=== PATIENT | female | born 1995 | race Caucasian/White ===

== ENCOUNTER 2017-01-13 12:22 | Emergency (ER) | payer OTHER ==
[~2017-01-13] VITALS: Ht 175.2 cm; Wt 61.2 kg
[~2017-01-13 12:22] MED LIST: ADDERALL 20 MG20 MG PO; ADDERALL20 MG PO; AMOXICILLIN500 M1 PO; BACTRIM DS 8001 TA1 PO; CIPRO500 MG PO; DEPO-PROVER150 MG/M1 IM; FLOMAX0.4 MG PO; HYDROCODONE BIT1 T11 PO; KETOROLAC10 MG PO; MEDROL DOSEPAK4 MG PO; Motrin,Rufen800 MG PO; NAPROSYN500 MG PO; PHENERGAN25 MG R; ZOFRAN ODT4 MG SL; ZOFRAN4 MG PO
[2017-01-13 12:26] VITALS: BP 143/83
[2017-01-13] MEDS ORDERED: VIBRAMYCIN100 MG PO (12:26)
[2017-01-13] MEDS ORDERED: NAPROSYN500 MG PO (12:36)
[2017-01-13] MEDS ORDERED: Peridex 473 ML473 ML PO (12:36)
[2017-01-13] MEDS ORDERED: LIDOCAINE HCL100 M1 MM (12:36)
[2017-01-13] MEDS ORDERED: PENICILLIN VK500 MG PO (12:36)
== END 2017-01-13 13:58 | disposition home or self-care (01) ==
LOC: ED 12:22
DX: K02.9 Dental caries, unspecified (principal); R03.0 Elevated blood-pressure reading, without diagnosis of hypertension; F17.200 Nicotine dependence, unspecified, uncomplicated

== ENCOUNTER 2017-05-01 02:20 | Emergency (ER) | payer OTHER ==
[~2017-05-01] VITALS: Ht 175.2 cm; Wt 59.0 kg
[~2017-05-01 02:20] MED LIST changes: +LIDOCAINE HCL100 M1 MM; +PENICILLIN VK500 MG PO; +Peridex 473 ML473 ML PO; +VIBRAMYCIN100 MG PO
[2017-05-01 02:30] VITALS: BP 136/78
[2017-05-01] MEDS ORDERED: BACTRIM 400-801 EACH PO ×2 (02:54→03:03)
[2017-05-01] MEDS ORDERED: VIBRAMYCIN100 MG PO ×2 (02:54→03:03)
[2017-05-01] MEDS ORDERED: KENALOG 0.1%80 GM T (02:55)
== END 2017-05-01 03:38 | disposition home or self-care (01) ==
LOC: ED 02:20
DX: S70.362A Insect bite (nonvenomous), left thigh, initial encounter (principal); W57.XXXA Bitten or stung by nonvenomous insect and other nonvenomous arthropods, initial encounter; Y93.9 Activity, unspecified; Y92.9 Unspecified place or not applicable; Y99.9 Unspecified external cause status

== ENCOUNTER 2017-05-05 12:01 | Inpatient (IN) | payer OTHER ==
[~2017-05-05] VITALS: Ht 175.2 cm; Wt 57.4 kg
[~2017-05-05 12:01] MED LIST changes: +BACTRIM 400-801 EACH PO; +KENALOG 0.1%80 GM T
[2017-05-05 12:11] VITALS: BP 108/84
[2017-05-05 12:34] LABS: HEMATOCRIT 42.3 % (37.0-47.0); HEMOGLOBIN 14.3 g/dl (12.0-16.0); MEAN CELL VOLUME 88.3 fl (81.0-99.0); MEAN CORPUSCULAR HGB 29.9 pg (27.0-31.0); MEAN CORPUSCULAR HGB CONC 33.8 g/dl (33.0-37.0); MEAN PLATELET VOLUME 10.6 fl (9.6-12.3); PLATELET COUNT AUTOMATED 371 10*3/uL (130-400); RED BLOOD COUNT 4.79 10*6/uL (4.10-5.10); RED CELL DISTRI WIDTH 12.1 % (0-14.5); WHITE BLOOD COUNT 17.9 10*3/uL (4.8-10.8)
[2017-05-05 12:41] LABS: BILIRUBIN NEGATIVE (NEGATIVE); BLOOD TRACE-INTACT (NEGATIVE); CLARITY CLOUDY (CLEAR); COLOR YELLOW (YELLOW); GLUCOSE NEGATIVE (NEGATIVE); KETONE TRACE (NEGATIVE); LEUKO ESTERASE 1+ (NEGATIVE); NITRITE NEGATIVE (NEGATIVE); PROTEIN 2+ (NEGATIVE); SPECIFIC GRAVITY 1.025 (1.005-1.030)
[2017-05-05 12:48] LABS: ALKALINE PHOSPHATASE 71 U/L (45-117); BILIRUBIN, TOTAL 0.4 mg/dl (0.2-1.0); BUN 6 mg/dl (7-24); CARBON DIOXIDE 28 mmol/L (21-32); CHLORIDE 101 mmol/L (98-107); EST GLOM FILT AFRICAN AMERICAN > 60 ml/min; GLUCOSE 97 mg/dL (65-99); POTASSIUM 3.5 mmol/L (3.5-5.1); SGOT/AST 8 IU/L (3-35); SGPT/ALT 12 U/L (12-78); SODIUM 139 mmol/L (136-145); TOTAL PROTEIN 8.2 gm/dL (6.4-8.2)
[2017-05-05 12:56] LABS: BASOPHIL # 0.2 10*3/uL (0-0.1); BASOPHILS 1 % (0-1); LYMPHOCYTE # 0.9 10*3/uL (1.3-4.4); MONOCYTE # 1.1 10*3/uL (0.1-1.0); NEUTROPHIL # 15.8 10*3/uL (2.3-7.9); NEUTROPHILS 88 % (47-73); PLATELET SUFFICIENCY NORMAL (NORMAL); TOTAL CELLS COUNTED 100 #CELLS
[2017-05-05 12:58] LABS: BACTERIA 3+; EPITHELIAL CELLS 30-40; MUCOUS 2+; URINE REFLEX COMMENT YES (NO); WBC 41-50 wbc/hpf (0-5)
[2017-05-05 13:03] LABS: URINE AMPHETAMINES < 1000 (1000ng/ml); URINE BARBITURATES < 200 (200ng/ml); URINE COCAINE > 300 (300ng/ml)
[2017-05-05] MEDS ORDERED: ADDERALL 20 MG20 MG PO (14:16)
[2017-05-05 14:20] VITALS: BP 112/80
[2017-05-05 14:30] VITALS: BP 112/80
[2017-05-05] MEDS ORDERED: KENALOG 0.1%80 GM T (14:59)
[2017-05-05 16:00] VITALS: BP 120/67
[2017-05-05 20:00] VITALS: BP 115/77
[2017-05-06] VITALS: BP 120/68
[2017-05-06 06:17] LABS: BASO % 0.1 % (0.0-1.0); EOS # 0.1 10*3/uL (0.0-0.4); EOS % 0.9 % (1.0-4.0); HEMATOCRIT 39.7 % (37.0-47.0); IG # 0.1 10*3/uL (0.0-0.1); LYMPH % 6.9 % (27.0-41.0); MEAN CELL VOLUME 89.6 fl (81.0-99.0); MEAN CORPUSCULAR HGB 29.3 pg (27.0-31.0); MEAN CORPUSCULAR HGB CONC 32.7 g/dl (33.0-37.0); MEAN PLATELET VOLUME 10.7 fl (9.6-12.3); MONO # 1.5 10*3/uL (0.1-1.0); MONO % 10.4 % (3.0-9.0); NEUT # 11.3 10*3/uL (2.3-7.9); NEUT % 81.2 % (47.0-73.0); PLATELET COUNT AUTOMATED 329 10*3/uL (130-400); RED BLOOD COUNT 4.43 10*6/uL (4.10-5.10); RED CELL DISTRI WIDTH 12.2 % (0-14.5); WHITE BLOOD COUNT 13.9 10*3/uL (4.8-10.8)
[2017-05-06 06:54] LABS: ALBUMIN 2.8 gm/dl (3.1-4.5); BUN 5 mg/dl (7-24); CARBON DIOXIDE 29 mmol/L (21-32); CHLORIDE 106 mmol/L (98-107); CHOLESTEROL 84 mg/dL (<200); EST GLOM FILT AFRICAN AMERICAN > 60 ml/min; GLUCOSE 113 mg/dL (65-99); MAGNESIUM 1.9 mg/dL (1.5-2.1); PHOSPHOROUS 2.4 mg/dL (2.5-4.9); POTASSIUM 3.3 mmol/L (3.5-5.1); SGOT/AST 9 IU/L (3-35); SGPT/ALT 9 U/L (12-78); SODIUM 139 mmol/L (136-145); TRIGLYCERIDES 65 mg/dl (<150); VLDL CHOLESTEROL 13 mg/dL (6-40)
[2017-05-06 06:57] LABS: PROTHROMBIN TIME 10.8 SECONDS (9.0-12.4)
[2017-05-06 07:01] LABS: ALKALINE PHOSPHATASE 61 U/L (45-117); BILIRUBIN, TOTAL 0.4 mg/dl (0.2-1.0); HDL CHOLESTEROL 30 mg/dl (40-60); LDL CHOLESTEROL 41 mg/dL (9-159); TOTAL PROTEIN 7.5 gm/dL (6.4-8.2)
[2017-05-06 08:00] VITALS: BP 106/62
[2017-05-06 08:29] LABS: VITAMIN D, 25-HYDROXY 32.7 ng/mL (30-100)
[2017-05-06 08:30] LABS: FOLIC ACID 9.59 ng/mL (>5.38)
[2017-05-06 12:00] VITALS: BP 118/73
[2017-05-06] MEDS ORDERED: ZOFRAN ODT4 MG SL (14:21)
[2017-05-06] MEDS ORDERED: FLAGYL500 MG PO (14:21)
== END 2017-05-06 15:14 | disposition home or self-care (01) | DRG 872 ==
LOC: ED 12:01 → EDHOLD 13:38 → 4E 13:48
PROVIDERS: Emergency Medicine; Internal Medicine Nephrology
DX: A41.9 Sepsis, unspecified organism (principal); E44.1 Mild protein-calorie malnutrition; Z68.1 Body mass index [BMI] 19.9 or less, adult; D72.0 Genetic anomalies of leukocytes; K52.9 Noninfective gastroenteritis and colitis, unspecified; F19.10 Other psychoactive substance abuse, uncomplicated; R10.2 Pelvic and perineal pain; F14.10 Cocaine abuse, uncomplicated; F12.10 Cannabis abuse, uncomplicated; R82.71 Bacteriuria; F17.200 Nicotine dependence, unspecified, uncomplicated; Z71.6 Tobacco abuse counseling; Z82.49 Family history of ischemic heart disease and other diseases of the circulatory system; Z79.1 Long term (current) use of non-steroidal anti-inflammatories (NSAID); Z91.09 Other allergy status, other than to drugs and biological substances; Z87.442 Personal history of urinary calculi; Z79.899 Other long term (current) drug therapy

== ENCOUNTER 2017-05-13 22:05 | Emergency (ER) | payer OTHER ==
[~2017-05-13] VITALS: Ht 175.2 cm; Wt 59.9 kg
[~2017-05-13 22:05] MED LIST changes: +FLAGYL500 MG PO
[2017-05-13 22:37] LABS: BASO % 0.3 % (0.0-1.0); EOS # 0.3 10*3/uL (0.0-0.4); HEMATOCRIT 38.8 % (37.0-47.0); LYMPH # 1.5 10*3/uL (1.3-4.4); LYMPH % 11.8 % (27.0-41.0); MEAN CELL VOLUME 90.7 fl (81.0-99.0); MEAN CORPUSCULAR HGB 30.4 pg (27.0-31.0); MEAN CORPUSCULAR HGB CONC 33.5 g/dl (33.0-37.0); MEAN PLATELET VOLUME 10.6 fl (9.6-12.3); MONO # 1.3 10*3/uL (0.1-1.0); MONO % 10.4 % (3.0-9.0); NEUT # 9.5 10*3/uL (2.3-7.9); PLATELET COUNT AUTOMATED 457 10*3/uL (130-400); RED BLOOD COUNT 4.28 10*6/uL (4.10-5.10); RED CELL DISTRI WIDTH 12.5 % (0-14.5); WHITE BLOOD COUNT 12.7 10*3/uL (4.8-10.8)
[2017-05-13 23:02] VITALS: BP 124/72
[2017-05-13 23:02] LABS: ALBUMIN 3.2 gm/dl (3.1-4.5); ALKALINE PHOSPHATASE 56 U/L (45-117); BUN 7 mg/dl (7-24); CHLORIDE 105 mmol/L (98-107); CREATININE 0.85 mg/dL (0.55-1.02); POTASSIUM 4.5 mmol/L (3.5-5.1); SGOT/AST 18 IU/L (3-35); SGPT/ALT 11 U/L (12-78); SODIUM 138 mmol/L (136-145); TOTAL PROTEIN 7.8 gm/dL (6.4-8.2)
[2017-05-13 23:43] LABS: BILIRUBIN NEGATIVE (NEGATIVE); BLOOD NEGATIVE (NEGATIVE); CLARITY CLOUDY (CLEAR); COLOR YELLOW (YELLOW); GLUCOSE NEGATIVE (NEGATIVE); KETONE TRACE (NEGATIVE); LEUKO ESTERASE 1+ (NEGATIVE); NITRITE NEGATIVE (NEGATIVE); SPECIFIC GRAVITY >= 1.030 (1.005-1.030); UROBILINOGEN 0.2 E.U./dl (0.2-1.0)
[2017-05-13] MEDS ORDERED: MIRALAX POWDER17 G1 PO (23:46)
[2017-05-13 23:51] LABS: BACTERIA 4+; EPITHELIAL CELLS 35-40; WBC 16-20 wbc/hpf (0-5)
[2017-05-13] MEDS ORDERED: MACROBID100 M1 PO (23:53)
== END 2017-05-14 00:28 | disposition home or self-care (01) ==
LOC: ED 22:05
PROVIDERS: Nurse Practitioner Family
DX: N39.0 Urinary tract infection, site not specified (principal); K59.00 Constipation, unspecified; F12.10 Cannabis abuse, uncomplicated; F14.10 Cocaine abuse, uncomplicated; F17.200 Nicotine dependence, unspecified, uncomplicated; Z79.899 Other long term (current) drug therapy

== ENCOUNTER 2017-08-25 16:55 | Emergency (ER) | payer OTHER ==
[~2017-08-25] VITALS: Wt 64.4 kg
[~2017-08-25 16:55] MED LIST changes: +MACROBID100 M1 PO; +MIRALAX POWDER17 G1 PO
[2017-08-25 16:57] VITALS: BP 154/94
[2017-08-25] MEDS ORDERED: NAPROSYN500 MG PO (17:05)
[2017-08-25] MEDS ORDERED: Peridex 473 ML473 ML PO (17:05)
[2017-08-25] MEDS ORDERED: PENICILLIN VK500 MG PO (17:05)
== END 2017-08-25 17:05 | disposition home or self-care (01) ==
LOC: ED 16:55
DX: K02.9 Dental caries, unspecified (principal); R03.0 Elevated blood-pressure reading, without diagnosis of hypertension; F17.200 Nicotine dependence, unspecified, uncomplicated; Z79.899 Other long term (current) drug therapy

== ENCOUNTER 2018-08-23 11:45 | Emergency (ER) | payer OTHER ==
[~2018-08-23] VITALS: Ht 177.8 cm; Wt 72.6 kg
[2018-08-23 11:50] VITALS: BP 150/101
== END 2018-08-23 12:01 | disposition left against medical advice (07) ==
LOC: ED 11:45
DX: O99.713 Diseases of the skin and subcutaneous tissue complicating pregnancy, third trimester (principal); L08.9 Local infection of the skin and subcutaneous tissue, unspecified; O99.333 Smoking (tobacco) complicating pregnancy, third trimester; Z3A.32 32 weeks gestation of pregnancy; Z79.2 Long term (current) use of antibiotics; Z79.899 Other long term (current) drug therapy; Z87.442 Personal history of urinary calculi; Z91.048 Other nonmedicinal substance allergy status

== ENCOUNTER 2019-09-13 17:27 | Emergency (ER) | payer OTHER ==
[~2019-09-13] VITALS: Ht 177.8 cm; Wt 59.4 kg
[2019-09-13 17:28] VITALS: BP 136/91
[2019-09-13] MEDS ORDERED: CLINDAMYCIN HC300 MG PO (17:48)
[2019-09-13] MEDS ORDERED: NAPROSYN500 MG PO (17:48)
== END 2019-09-13 18:15 | disposition home or self-care (01) ==
LOC: ED 17:27
DX: K04.7 Periapical abscess without sinus (principal); F17.200 Nicotine dependence, unspecified, uncomplicated; Z91.048 Other nonmedicinal substance allergy status

== ENCOUNTER 2019-10-05 23:21 | Inpatient (IN) | payer SELFPAY ==
[~2019-10-05] VITALS: Ht 177.8 cm; Wt 59.4 kg
[~2019-10-05 23:21] MED LIST changes: +CLINDAMYCIN HC300 MG PO
[2019-10-05 23:26] VITALS: BP 136/88
[2019-10-06 00:06] LABS: BILIRUBIN NEGATIVE (NEGATIVE); BLOOD 2+ (NEGATIVE); CLARITY CLOUDY (CLEAR); COLOR YELLOW (YELLOW); GLUCOSE NEGATIVE (NEGATIVE); KETONE NEGATIVE (NEGATIVE); LEUKO ESTERASE 1+ (NEGATIVE); NITRITE POSITIVE (NEGATIVE); SPECIFIC GRAVITY >= 1.030 (1.005-1.030)
[2019-10-06 00:15] LABS: BACTERIA 4+; RBC 16-20 rbc/hpf (0-2); WBC TNTC wbc/hpf (0-5)
[2019-10-06 01:09] LABS: ALBUMIN 3.4 gm/dl (3.1-4.5); ALKALINE PHOSPHATASE 74 U/L (45-117); BUN 12 mg/dl (7-24); CHLORIDE 106 mmol/L (98-107); CREATININE 0.84 mg/dL (0.55-1.02); POTASSIUM 3.1 mmol/L (3.5-5.1); SGOT/AST 10 IU/L (3-35); SGPT/ALT 15 U/L (12-78); SODIUM 136 mmol/L (136-145); TOTAL PROTEIN 7.2 gm/dL (6.4-8.2)
[2019-10-06 01:11] LABS: HEMATOCRIT 38.2 % (37.0-47.0); HEMOGLOBIN 12.4 g/dl (12.0-16.0); MEAN CELL VOLUME 87.4 fl (81.0-99.0); MEAN CORPUSCULAR HGB 28.4 pg (27.0-31.0); MEAN CORPUSCULAR HGB CONC 32.5 g/dl (33.0-37.0); MEAN PLATELET VOLUME 11.9 fl (9.6-12.3); PLATELET COUNT AUTOMATED 232 10*3/uL (130-400); RED BLOOD COUNT 4.37 10*6/uL (4.10-5.10); RED CELL DISTRI WIDTH 12.5 % (0-14.5); WHITE BLOOD COUNT 25.1 10*3/uL (4.8-10.8)
[2019-10-06 01:34] LABS: BASOPHILS 1 % (0-1); BURR CELLS FEW; PLATELET SUFFICIENCY NORMAL (NORMAL); TOTAL CELLS COUNTED 100 #CELLS
[2019-10-06 03:01] VITALS: BP 108/76
[2019-10-06 03:28] LABS: URINE AMPHETAMINES < 1000 (1000ng/ml); URINE BARBITURATES < 200 (200ng/ml); URINE BENZODIAZEPINES < 200 (200ng/ml); URINE CANNABINOIDS (THC) > 50 (50ng/ml); URINE COCAINE > 300 (300ng/ml); URINE METHADONE < 300 (300ng/ml); URINE OPIATES < 300 (300ng/ml)
[2019-10-06 03:45] VITALS: BP 119/64
[2019-10-06 03:48] LABS: URINE PHENCYCLIDINE < 25 (25ng/ml)
[2019-10-06 08:00] VITALS: BP 116/70
[2019-10-06 12:00] VITALS: BP 112/70
[2019-10-06 16:00] VITALS: BP 113/66
[2019-10-06 20:00] VITALS: BP 118/67
[2019-10-07] VITALS: BP 110/67
[2019-10-07 06:42] LABS: BASO % 0.2 % (0.0-1.0); EOS # 0.1 10*3/uL (0.0-0.4); EOS % 0.6 % (1.0-4.0); HEMATOCRIT 34.5 % (37.0-47.0); LYMPH # 0.6 10*3/uL (1.3-4.4); LYMPH % 6.8 % (27.0-41.0); MEAN CELL VOLUME 88.5 fl (81.0-99.0); MEAN CORPUSCULAR HGB 28.2 pg (27.0-31.0); MEAN CORPUSCULAR HGB CONC 31.9 g/dl (33.0-37.0); MEAN PLATELET VOLUME 12.4 fl (9.6-12.3); MONO # 0.9 10*3/uL (0.1-1.0); NEUT # 7.6 10*3/uL (2.3-7.9); NEUT % 81.9 % (47.0-73.0); PLATELET COUNT AUTOMATED 191 10*3/uL (130-400); RED CELL DISTRI WIDTH 12.8 % (0-14.5); WHITE BLOOD COUNT 9.3 10*3/uL (4.8-10.8)
[2019-10-07 07:18] LABS: BUN 5 mg/dl (7-24); CHLORIDE 111 mmol/L (98-107); CHOLESTEROL 78 mg/dL (<200); CREATININE 0.78 mg/dL (0.55-1.02); POTASSIUM 3.8 mmol/L (3.5-5.1); SODIUM 139 mmol/L (136-145); TRIGLYCERIDES 77 mg/dl (<150); VLDL CHOLESTEROL 15 mg/dL (6-40)
[2019-10-07 07:28] LABS: HDL CHOLESTEROL 26 mg/dl (40-60); LDL CHOLESTEROL 37 mg/dL (9-159); THYROID STIM HORMONE (HS) 0.934 uIU/ml (0.358-4.75)
[2019-10-07 07:56] LABS: VITAMIN D, 25-HYDROXY 36.4 ng/mL (30-100)
[2019-10-07 08:00] VITALS: BP 110/70; BP 128/71
[2019-10-07 12:00] VITALS: BP 131/69
[2019-10-07 16:00] VITALS: BP 122/77
[2019-10-07 20:00] VITALS: BP 134/90
[2019-10-07 22:03] LABS: GONOCOCCUS BY NAA Negative (Negative)
== END 2019-10-07 22:43 | disposition left against medical advice (07) | DRG 872 ==
LOC: ED 23:21 → EDHOLD 10-06 02:54 → 5E 10-06 02:54
PROVIDERS: Emergency Medicine; Internal Medicine; Nurse Practitioner Family; ADMIT Internal Medicine
DX: A41.50 Gram-negative sepsis, unspecified (principal); N30.01 Acute cystitis with hematuria; N13.6 Pyonephrosis; E87.6 Hypokalemia; K59.00 Constipation, unspecified; F17.210 Nicotine dependence, cigarettes, uncomplicated; Z53.29 Procedure and treatment not carried out because of patient's decision for other reasons; F14.10 Cocaine abuse, uncomplicated; Z91.09 Other allergy status, other than to drugs and biological substances; Z82.49 Family history of ischemic heart disease and other diseases of the circulatory system; Z79.899 Other long term (current) drug therapy

== ENCOUNTER 2019-10-08 13:39 | Inpatient (IN) | payer OTHER ==
[~2019-10-08] VITALS: Ht 177.8 cm; Wt 62.6 kg
[2019-10-08 13:47] VITALS: BP 130/82
[2019-10-08 14:40] LABS: BASO % 0.2 % (0.0-1.0); EOS # 0.1 10*3/uL (0.0-0.4); EOS % 1.1 % (1.0-4.0); HEMATOCRIT 37.5 % (37.0-47.0); LYMPH # 0.9 10*3/uL (1.3-4.4); MEAN CORPUSCULAR HGB 28.2 pg (27.0-31.0); MEAN PLATELET VOLUME 11.2 fl (9.6-12.3); MONO # 0.8 10*3/uL (0.1-1.0); MONO % 15.7 % (3.0-9.0); NEUT # 3.5 10*3/uL (2.3-7.9); NEUT % 65.4 % (47.0-73.0); PLATELET COUNT AUTOMATED 234 10*3/uL (130-400); RED BLOOD COUNT 4.26 10*6/uL (4.10-5.10); WHITE BLOOD COUNT 5.3 10*3/uL (4.8-10.8)
[2019-10-08 14:49] LABS: ACT PARTIAL THROMBO TIME 30.7 SECONDS (20.0-32.1)
[2019-10-08 14:58] LABS: ALBUMIN 2.8 gm/dl (3.1-4.5); ALKALINE PHOSPHATASE 109 U/L (45-117); BUN 2 mg/dl (7-24); CHLORIDE 107 mmol/L (98-107); CREATININE 0.83 mg/dL (0.55-1.02); LIPASE 37 U/L (73-393); POTASSIUM 3.8 mmol/L (3.5-5.1); SGOT/AST 33 IU/L (3-35); SGPT/ALT 58 U/L (12-78); SODIUM 138 mmol/L (136-145); TOTAL PROTEIN 7.1 gm/dL (6.4-8.2)
[2019-10-08 15:04] LABS: TROPONIN I < 0.015 ng/ml (<0.045)
[2019-10-08 16:34] LABS: CLARITY CLEAR (CLEAR); COLOR YELLOW (YELLOW); GLUCOSE NEGATIVE (NEGATIVE)
[2019-10-08 16:35] LABS: BILIRUBIN NEGATIVE (NEGATIVE); BLOOD NEGATIVE (NEGATIVE); KETONE NEGATIVE (NEGATIVE); PH 7.5 (5.0-9.0); SPECIFIC GRAVITY 1.005 (1.005-1.030)
[2019-10-08 16:36] LABS: LEUKO ESTERASE NEGATIVE (NEGATIVE); NITRITE NEGATIVE (NEGATIVE); UROBILINOGEN 0.2 E.U./dl (0.2-1.0); WBC 0-2 wbc/hpf (0-5)
[2019-10-08 17:47] VITALS: BP 117/71
--- NOTE | 2019-10-08 18:06 | NUR ---
UNABLE TO REACH STAFF NURSE CALLED 5E LEFT MESSAGE TO RETURN CALL
--- NOTE | 2019-10-08 18:35 | NUR ---
A 24, admitted to 5E, under the services of MARISOL Loja DO with a diagnosis of SEPSIS, BACTEREMIA D/T ECOLI. Chief complaint is CALLED FROM ER WITH +BC AFTER LEAVING AMA THE NIGHT BEFORE BECAUSE SHE "FELT BETTER". Patient arrived via stretcher from ER. Monitor applied. Initial assessment completed. Vital signs taken and recorded. MARISOL LOJA DO notified of admission to the unit. Orders received. See assessment for past medical history, medications and allergies. Patient and/or family oriented to unit. [address] visitation policy reviewed. Clothing/patient valuable form completed. JANES PUENTES
--- NOTE | 2019-10-08 18:35 | NUR ---
Time: 1834 A 24 year old FEMAL admitted to under services of MARISOL LOJA DO. Pt. arrived via stretcher from ER. Chief complaint: CALLED FROM HOSPITAL TODAY RE: BLOOD CULTURES FROM HER ADMISSION YESTERDAY POSITIVE FOR E COLI. SHANNA MONTGOMERY
[2019-10-08 18:37] VITALS: BP 139/85
--- NOTE | 2019-10-08 19:58 | NUR ---
Message left with Dr. Soria's answering service regarding consult. Awaiting return call.
[2019-10-08 20:00] VITALS: BP 111/59
--- NOTE | 2019-10-08 20:02 | NUR ---
Dr. Soria notified of consult.
[2019-10-09] VITALS: BP 118/84
--- NOTE | 2019-10-09 01:11 | NUR ---
PATIENT COMPLAINS OF 9/10 HEADACHE AND NAUSEA. MEDICATED WITH TYLENOL AND ZOFRAN ORDERED AND PER PATIENT REQUEST. WILL MONITOR FOR EFFECTIVENESS.
--- NOTE | 2019-10-09 02:11 | NUR ---
PATIENT ASLEEP. NO SIGNS OF PAIN OR NAUSEA. TYLENOL AND ZOFRAN EFFECTIVE.
[2019-10-09 06:25] LABS: BASO % 0.4 % (0.0-1.0); EOS # 0.1 10*3/uL (0.0-0.4); HEMATOCRIT 35.2 % (37.0-47.0); HEMOGLOBIN 11.3 g/dl (12.0-16.0); LYMPH % 14.2 % (27.0-41.0); MEAN CELL VOLUME 87.1 fl (81.0-99.0); MEAN CORPUSCULAR HGB CONC 32.1 g/dl (33.0-37.0); MEAN PLATELET VOLUME 11.5 fl (9.6-12.3); MONO # 1.2 10*3/uL (0.1-1.0); NEUT # 4.7 10*3/uL (2.3-7.9); PLATELET COUNT AUTOMATED 260 10*3/uL (130-400); RED BLOOD COUNT 4.04 10*6/uL (4.10-5.10)
[2019-10-09 06:37] LABS: BUN 3 mg/dl (7-24); CHLORIDE 110 mmol/L (98-107); CREATININE 0.71 mg/dL (0.55-1.02); PHOSPHOROUS 1.9 mg/dL (2.5-4.9); POTASSIUM 3.9 mmol/L (3.5-5.1); SODIUM 140 mmol/L (136-145)
[2019-10-09 08:00] VITALS: BP 133/54
--- NOTE | 2019-10-09 09:18 | NUR ---
NORCO GIVEN FOR C/O BODY ACHES/HEADACHE. RATES 8/10 ON PAIN SCALE. WILL MONITOR.
--- NOTE | 2019-10-09 10:20 | NUR ---
NORCO RELIEVED BODY ACHES. PT STILL C/O HEADACHE. WILL CONTINUE TO MONITOR.
[2019-10-09] MEDS ORDERED: LEVAQUIN750 M1 PO (10:33)
--- NOTE | 2019-10-09 10:47 | NUR ---
TYLENOL GIVEN FOR C/O HEADACHE. WILL MONITOR.
[2019-10-09] MEDS ORDERED: ZOFRAN4 MG PO (11:28)
--- NOTE | 2019-10-09 11:58 | NUR ---
[facility] Discharge instructions reviewed with patient/family. Patient receptive and verbalizes understanding. Follow-up care arranged. Written instructions given to patient/family. JOHN HOLLY
== END 2019-10-09 11:58 | disposition home or self-care (01) | DRG 720 ==
LOC: ED 13:39 → 5E 15:29 → EDHOLD 15:29 → 5E 16:12
PROVIDERS: Nurse Practitioner Family; Student in an Organized Health Care Education/Training Program; ADMIT Internal Medicine
DX: A41.51 Sepsis due to Escherichia coli [E. coli] (principal); N13.6 Pyonephrosis; F17.210 Nicotine dependence, cigarettes, uncomplicated; Z71.6 Tobacco abuse counseling; Z88.5 Allergy status to narcotic agent; Z91.018 Allergy to other foods; Z82.49 Family history of ischemic heart disease and other diseases of the circulatory system

== ENCOUNTER 2019-10-24 10:39 | Emergency (ER) | payer OTHER ==
[~2019-10-24] VITALS: Ht 177.8 cm; Wt 63.0 kg
[~2019-10-24 10:39] MED LIST changes: +LEVAQUIN750 M1 PO
[2019-10-24 10:43] VITALS: BP 139/88
[2019-10-24 11:07] LABS: BILIRUBIN NEGATIVE (NEGATIVE); CLARITY SL CLOUDY (CLEAR); COLOR YELLOW (YELLOW); GLUCOSE NEGATIVE (NEGATIVE); KETONE NEGATIVE (NEGATIVE)
[2019-10-24 11:08] LABS: BLOOD TRACE-INTACT (NEGATIVE); LEUKO ESTERASE NEGATIVE (NEGATIVE); NITRITE NEGATIVE (NEGATIVE); UROBILINOGEN 0.2 E.U./dl (0.2-1.0)
[2019-10-24 11:19] LABS: BACTERIA 1+; MUCOUS 2+; RBC 16-20 rbc/hpf (0-2); YEAST 1+
[2019-10-24 11:37] LABS: BASO # 0.1 10*3/uL (0.0-0.1); EOS # 0.1 10*3/uL (0.0-0.4); EOS % 1.5 % (1.0-4.0); HEMATOCRIT 39.4 % (37.0-47.0); HEMOGLOBIN 12.7 g/dl (12.0-16.0); LYMPH % 27.8 % (27.0-41.0); MEAN CELL VOLUME 85.7 fl (81.0-99.0); MEAN CORPUSCULAR HGB 27.6 pg (27.0-31.0); MEAN CORPUSCULAR HGB CONC 32.2 g/dl (33.0-37.0); MEAN PLATELET VOLUME 10.8 fl (9.6-12.3); MONO # 0.8 10*3/uL (0.1-1.0); MONO % 10.5 % (3.0-9.0); NEUT # 4.2 10*3/uL (2.3-7.9); NEUT % 58.9 % (47.0-73.0); PLATELET COUNT AUTOMATED 419 10*3/uL (130-400); WHITE BLOOD COUNT 7.2 10*3/uL (4.8-10.8)
[2019-10-24 11:54] LABS: ALKALINE PHOSPHATASE 71 U/L (45-117); BUN 13 mg/dl (7-24); CHLORIDE 108 mmol/L (98-107); CREATININE 0.93 mg/dL (0.55-1.02); POTASSIUM 3.2 mmol/L (3.5-5.1); SGOT/AST 11 IU/L (3-35); SGPT/ALT 16 U/L (12-78); SODIUM 139 mmol/L (136-145); TOTAL PROTEIN 7.7 gm/dL (6.4-8.2)
[2019-10-24 11:59] LABS: BETA-HCG, QUANT < 1.0 mIU/mL (1-3)
[2019-10-24] MEDS ORDERED: POTASSIUM CHLO20 ME3 PO (12:06)
[2019-10-24] MEDS ORDERED: SEPTDS PO (12:06)
== END 2019-10-24 12:05 | disposition left against medical advice (07) ==
LOC: ED 10:39
PROVIDERS: Nurse Practitioner Family
DX: N12 Tubulo-interstitial nephritis, not specified as acute or chronic (principal); F17.200 Nicotine dependence, unspecified, uncomplicated; Z88.1 Allergy status to other antibiotic agents; Z88.8 Allergy status to other drugs, medicaments and biological substances; Z79.899 Other long term (current) drug therapy

== ENCOUNTER 2020-01-25 13:03 | Emergency (ER) | payer OTHER ==
[~2020-01-25] VITALS: Ht 177.8 cm; Wt 59.0 kg
[~2020-01-25 13:03] MED LIST changes: +POTASSIUM CHLO20 ME3 PO; +SEPTDS PO
[2020-01-25 13:32] LABS: BASO % 0.1 % (0.0-1.0); EOS # 0.3 10*3/uL (0.0-0.4); EOS % 1.7 % (1.0-4.0); HEMATOCRIT 45.1 % (37.0-47.0); LYMPH # 1.7 10*3/uL (1.3-4.4); LYMPH % 10.1 % (27.0-41.0); MEAN CELL VOLUME 88.8 fl (81.0-99.0); MEAN CORPUSCULAR HGB 29.3 pg (27.0-31.0); MEAN PLATELET VOLUME 10.9 fl (9.6-12.3); MONO # 1.5 10*3/uL (0.1-1.0); MONO % 8.7 % (3.0-9.0); NEUT # 13.2 10*3/uL (2.3-7.9); PLATELET COUNT AUTOMATED 346 10*3/uL (130-400); RED BLOOD COUNT 5.08 10*6/uL (4.10-5.10); WHITE BLOOD COUNT 16.7 10*3/uL (4.8-10.8)
[2020-01-25 13:53] LABS: COLOR YELLOW (YELLOW)
[2020-01-25 13:54] LABS: BILIRUBIN NEGATIVE (NEGATIVE); BLOOD 3+ (NEGATIVE); CLARITY CLOUDY (CLEAR); GLUCOSE NEGATIVE (NEGATIVE); KETONE NEGATIVE (NEGATIVE); LEUKO ESTERASE TRACE (NEGATIVE); NITRITE NEGATIVE (NEGATIVE); PH 6.5 (5.0-9.0); RBC TNTC rbc/hpf (0-2); UROBILINOGEN 0.2 E.U./dl (0.2-1.0)
[2020-01-25 14:04] LABS: ALBUMIN 3.4 gm/dl (3.1-4.5); ALKALINE PHOSPHATASE 79 U/L (45-117); BUN 9 mg/dl (7-24); CHLORIDE 108 mmol/L (98-107); POTASSIUM 3.4 mmol/L (3.5-5.1); SGOT/AST 6 IU/L (3-35); SGPT/ALT 15 U/L (12-78); SODIUM 139 mmol/L (136-145)
[2020-01-25 14:07] LABS: BETA-HCG, QUANT < 1.0 mIU/mL (1-3)
[2020-01-25 14:38] VITALS: BP 110/70
[2020-01-25] MEDS ORDERED: ZOFRAN4 MG PO (14:39)
[2020-01-25] MEDS ORDERED: DIFLUCAN150 MG PO (14:39)
[2020-01-25] MEDS ORDERED: SEPTDS PO (14:39)
[2020-01-25] MEDS ORDERED: IMODIUM A-D2 M2 PO (14:42)
== END 2020-01-25 14:49 | disposition home or self-care (01) ==
LOC: ED 13:03
PROVIDERS: Emergency Medicine
DX: K52.9 Noninfective gastroenteritis and colitis, unspecified (principal); N39.0 Urinary tract infection, site not specified; F17.200 Nicotine dependence, unspecified, uncomplicated; Z88.8 Allergy status to other drugs, medicaments and biological substances; Z79.899 Other long term (current) drug therapy

== ENCOUNTER 2020-02-06 10:11 | Inpatient (IN) | payer OTHER ==
[~2020-02-06] VITALS: Ht 177.8 cm; Wt 58.3 kg
[~2020-02-06 10:11] MED LIST changes: +DIFLUCAN150 MG PO; +IMODIUM A-D2 M2 PO
[2020-02-06 10:16] VITALS: BP 133/81
[2020-02-06 11:24] LABS: HEMATOCRIT 38.7 % (37.0-47.0); MEAN CELL VOLUME 89.2 fl (81.0-99.0); MEAN CORPUSCULAR HGB CONC 32.6 g/dl (33.0-37.0); MEAN PLATELET VOLUME 10.3 fl (9.6-12.3); PLATELET COUNT AUTOMATED 353 10*3/uL (130-400); RED BLOOD COUNT 4.34 10*6/uL (4.10-5.10); WHITE BLOOD COUNT 16.8 10*3/uL (4.8-10.8)
[2020-02-06 11:24] LABS: BILIRUBIN NEGATIVE (NEGATIVE); BLOOD TRACE-LYSED (NEGATIVE); CLARITY CLOUDY (CLEAR); COLOR YELLOW (YELLOW); GLUCOSE NEGATIVE (NEGATIVE); KETONE NEGATIVE (NEGATIVE)
[2020-02-06 11:25] LABS: BACTERIA 4+; EPITHELIAL CELLS 41-50; LEUKO ESTERASE 3+ (NEGATIVE); NITRITE POSITIVE (NEGATIVE); UROBILINOGEN 0.2 E.U./dl (0.2-1.0); WBC TNTC wbc/hpf (0-5)
[2020-02-06 11:38] LABS: ALBUMIN 3.5 gm/dl (3.1-4.5); ALKALINE PHOSPHATASE 69 U/L (45-117); BUN 10 mg/dl (7-24); CHLORIDE 105 mmol/L (98-107); CREATININE 0.74 mg/dL (0.55-1.02); LIPASE 56 U/L (73-393); POTASSIUM 3.8 mmol/L (3.5-5.1); SGOT/AST 6 IU/L (3-35); SGPT/ALT 13 U/L (12-78); SODIUM 137 mmol/L (136-145); TOTAL PROTEIN 7.8 gm/dL (6.4-8.2)
[2020-02-06 11:46] LABS: PLATELET SUFFICIENCY NORMAL (NORMAL); TOTAL CELLS COUNTED 100 #CELLS
--- NOTE | 2020-02-06 12:15 | NUR ---
PT RESTING IN BED. WAS PROVIDED ANOTHER BLANKET. NO NEEDS AT THIS TIME
[2020-02-06 12:57] VITALS: BP 109/71
[2020-02-06 13:10] VITALS: BP 133/70
--- NOTE | 2020-02-06 13:10 | NUR ---
Time: 0 A 24 year old FEMALE admitted to 5E under services of KHRIS ADAMS DO. Pt. arrived via wheel chair from ER. Chief complaint: UTI SEPSIS. PT'S MED REQ WAS COMPLETED. PT DOES NOT TAKE ANY HOME MEDICATIONS. PT'S IV WAS IN THE LEFT ANTECUBITAL AND SITE WAS C/D/I. PT'S INITIAL ASSESSMENT WAS COMPLETED. PT HAD NO WOUNDS PRESENT AND NO OTHER COMPLIANTS EXCEPT SLIGHT FLANK PAIN. PT IS A 0.5 PK A DAY SMOKER AND REQUESTED A NICOTINE PATCH. PT IS RESTING COMFORTABLY IN BED. ANDREW PARKS
[2020-02-06 16:00] VITALS: BP 122/72; BP 130/68
--- NOTE | 2020-02-06 18:00 | NUR ---
PT REQUESTED SOMETHING FOR PAIN, STATED TYLENOL DOES NOT WORK. CALLED DR. COELHO AND NOTIFIED HER OF PT'S REQUEST. SEE NEW ORDER.
[2020-02-06 20:00] VITALS: BP 126/74
--- NOTE | 2020-02-06 20:28 | NUR ---
INFORMED THAT PATIENT IS REQUESTING A SLEEPING AID FOR TONIGHT. STATED HE WILL PLACE AN ORDER.
--- NOTE | 2020-02-06 20:39 | NUR ---
PATIENT MEDICATED WITH TYLENOL AND RESTORIL FOR C/O INSOMNIA AND GENERALIZED ACHES 4/10. WILL MONITOR
--- NOTE | 2020-02-06 21:39 | NUR ---
TYLENOL AND RESTORIL APPEARS EFFECTIVE. PATIENT RESTING QUIETLY.
--- NOTE | 2020-02-06 22:29 | NUR ---
INFORMED THAT PATIENT IS COMPLAINING OF 8/10 PAIN TO LOWER BACK. PATIENT STATES THAT SHE NOT ALLERGIC TO MORPHINE JUST GETS A HEADACHE HOURS AFTER USE, ALLERGY LIST FIXED PER DOCTOR WISHES. STATED HE WILL PLACE ORDER FOR [employer].
--- NOTE | 2020-02-06 22:43 | NUR ---
PATIENT MEDICATED WITH NORCO FOR C/O LOWER BACK PAIN 04/26. WILL MONITOR
[2020-02-07] VITALS: BP 109/57
--- NOTE | 2020-02-07 01:05 | NUR ---
Hep Lock discontinued BEAN. Site symptomatic, PULLED OUT. Pressure applied. Sterile dressing applied. NOE ALVARADO
--- NOTE | 2020-02-07 01:06 | NUR ---
IV started left arm with #22 protective cath after 0\ attempts. Site prepped with Chloroprep. Sterile dressing applied. Patient tolerated procedure well. NOE ALVARADO
[2020-02-07 07:37] LABS: HEMATOCRIT 35.1 % (37.0-47.0); MEAN CELL VOLUME 89.1 fl (81.0-99.0); MEAN CORPUSCULAR HGB 29.4 pg (27.0-31.0); MEAN PLATELET VOLUME 10.7 fl (9.6-12.3); PLATELET COUNT AUTOMATED 301 10*3/uL (130-400); RED BLOOD COUNT 3.94 10*6/uL (4.10-5.10); WHITE BLOOD COUNT 12.9 10*3/uL (4.8-10.8)
[2020-02-07 07:54] LABS: ALBUMIN 2.7 gm/dl (3.1-4.5); ALKALINE PHOSPHATASE 58 U/L (45-117); BUN 6 mg/dl (7-24); CHLORIDE 107 mmol/L (98-107); CHOLESTEROL 108 mg/dL (<200); CREATININE 0.61 mg/dL (0.55-1.02); FREE T4 0.98 ng/dl (0.76-1.46); HDL CHOLESTEROL 50 mg/dl (40-60); LDL CHOLESTEROL 50 mg/dL (9-159); POTASSIUM 4.1 mmol/L (3.5-5.1); SGOT/AST 6 IU/L (3-35); SGPT/ALT 14 U/L (12-78); SODIUM 137 mmol/L (136-145); TOTAL PROTEIN 6.6 gm/dL (6.4-8.2); TRIGLYCERIDES 38 mg/dl (<150); VLDL CHOLESTEROL 8 mg/dL (6-40)
[2020-02-07 07:59] LABS: THYROID STIM HORMONE (HS) 0.827 uIU/ml (0.358-4.75)
[2020-02-07 08:00] VITALS: BP 134/75
[2020-02-07 08:22] LABS: PLATELET SUFFICIENCY NORMAL (NORMAL); TOTAL CELLS COUNTED 100 #CELLS
--- NOTE | 2020-02-07 08:40 | NUR ---
NOTIFIED JOSE CHOPRA CNP, OF PHOS 1.1,TEMP 101.3, AND PT REQUESTING "SOMETHING STRONGER " FOR PAIN.
--- NOTE | 2020-02-07 08:45 | NUR ---
NORCO 5/325 MG GIVEN FOR C/O BACK PAIN,04/26.
[2020-02-07 09:05] LABS: VITAMIN D, 25-HYDROXY 23.8 ng/mL (30-100)
--- NOTE | 2020-02-07 09:11 | NUR ---
Loss Control Consultant in to talk to patient. Patient states lives at home with parents. There are no steps in the home. Physician: none at present Pharmacy: [facility] Home health services: none Patient's level of ADLs: INDEPENDENT Patient has working utilities: all working DME: none Follow-up physician's appointment after d/c: will be made by hospitalist nurse director upon discharge with doctor of patient's choice Does patient want to access PORTAL?: no Discharge plan discussed with patient she lives at home with parents,she is independent in adls and ambulation, she doesn't drive due to not having a drivers license. her family transports her wherever she needs to go. she stated she would return home when medically stable and denies any home needs, case management will follow. JIMENEZ CHOE
--- NOTE | 2020-02-07 09:24 | NUR ---
EDITED ALLERGY LIST PER JOSE CHOPRA'S REQUEST. PT DENIES ALLERGY TO MORPHINE BUT DOES SAY SHE HAS A HEADACHE WHEN SHE TAKES IT.
[2020-02-07 12:00] VITALS: BP 124/66
--- NOTE | 2020-02-07 15:03 | NUR ---
NORCO 5/325 MG GIVEN FOR C/O BACK PAIN,02/24.
[2020-02-07 16:00] VITALS: BP 126/65
--- NOTE | 2020-02-07 19:30 | NUR ---
PATIENT VOICED NO COMPLAINTS. NO DISTRESS NOTED, RESP ARE EASY AND REGULAR. CALL LIGHT LEFT WITHIN REACH
[2020-02-07 20:00] VITALS: BP 118/75
--- NOTE | 2020-02-07 20:30 | NUR ---
PATIENT MEDICATED WITH RESTORIL FOR C/O INSOMNIA. WILL MONITOR
--- NOTE | 2020-02-07 20:58 | NUR ---
PATIENT MEDICATED WITH NORCO FOR 8/10 LOWER BACK PAIN. WILL MONITOR.
--- NOTE | 2020-02-07 21:58 | NUR ---
NORCO EFFECTIVE FOR LOWER BACK PAIN
[2020-02-08] VITALS: BP 122/61
[2020-02-08 08:00] VITALS: BP 111/74
[2020-02-08 08:03] LABS: BASO # 0.1 10*3/uL (0.0-0.1); BASO % 0.9 % (0.0-1.0); EOS # 0.5 10*3/uL (0.0-0.4); EOS % 5.6 % (1.0-4.0); HEMATOCRIT 35.4 % (37.0-47.0); LYMPH # 1.8 10*3/uL (1.3-4.4); MEAN CELL VOLUME 90.1 fl (81.0-99.0); MEAN CORPUSCULAR HGB CONC 32.2 g/dl (33.0-37.0); MEAN PLATELET VOLUME 10.5 fl (9.6-12.3); MONO # 1.3 10*3/uL (0.1-1.0); MONO % 15.1 % (3.0-9.0); NEUT # 5.2 10*3/uL (2.3-7.9); NEUT % 58.1 % (47.0-73.0); PLATELET COUNT AUTOMATED 314 10*3/uL (130-400); RED BLOOD COUNT 3.93 10*6/uL (4.10-5.10); RED CELL DISTRI WIDTH 12.9 % (0-14.5); WHITE BLOOD COUNT 8.9 10*3/uL (4.8-10.8)
[2020-02-08 08:14] LABS: ALBUMIN 2.7 gm/dl (3.1-4.5); ALKALINE PHOSPHATASE 55 U/L (45-117); BUN 6 mg/dl (7-24); CHLORIDE 106 mmol/L (98-107); CREATININE 0.67 mg/dL (0.55-1.02); POTASSIUM 4.2 mmol/L (3.5-5.1); SGOT/AST 8 IU/L (3-35); SGPT/ALT 18 U/L (12-78); SODIUM 139 mmol/L (136-145); TOTAL PROTEIN 6.7 gm/dL (6.4-8.2)
[2020-02-08] MEDS ORDERED: OMNICEF300 MG PO (09:34)
--- NOTE | 2020-02-08 10:44 | NUR ---
Discharge instructions reviewed with patient/family. Patient receptive and verbalizes understanding. Follow-up care arranged. Written instructions given to patient/family. RENEA FINCH
== END 2020-02-08 10:44 | disposition home or self-care (01) | DRG 720 ==
LOC: ED 10:11 → EDHOLD 11:58 → 5E 13:06
PROVIDERS: Emergency Medicine; Registered Nurse; ADMIT Internal Medicine
DX: A41.51 Sepsis due to Escherichia coli [E. coli] (principal); N30.00 Acute cystitis without hematuria; E83.41 Hypermagnesemia; B96.20 Unspecified Escherichia coli [E. coli] as the cause of diseases classified elsewhere; E44.0 Moderate protein-calorie malnutrition; Z87.891 Personal history of nicotine dependence; Z88.5 Allergy status to narcotic agent; Z91.09 Other allergy status, other than to drugs and biological substances; Z87.440 Personal history of urinary (tract) infections; Z98.891 History of uterine scar from previous surgery; Z82.49 Family history of ischemic heart disease and other diseases of the circulatory system; Z83.6 Family history of other diseases of the respiratory system; Z71.6 Tobacco abuse counseling; Z68.1 Body mass index [BMI] 19.9 or less, adult

== ENCOUNTER → 2020-02-11 | Outpatient (CLI) | payer OTHER ==
[~2020-02-11] MED LIST changes: +OMNICEF300 MG PO
[2020-02-11 13:27] LABS: BASO % 0.5 % (0.0-1.0); EOS # 0.5 10*3/uL (0.0-0.4); EOS % 7.3 % (1.0-4.0); HEMATOCRIT 37.8 % (37.0-47.0); LYMPH # 1.7 10*3/uL (1.3-4.4); MEAN CELL VOLUME 90.9 fl (81.0-99.0); MEAN CORPUSCULAR HGB 28.4 pg (27.0-31.0); MEAN CORPUSCULAR HGB CONC 31.2 g/dl (33.0-37.0); MEAN PLATELET VOLUME 10.6 fl (9.6-12.3); MONO # 0.7 10*3/uL (0.1-1.0); MONO % 9.6 % (3.0-9.0); NEUT # 4.4 10*3/uL (2.3-7.9); NEUT % 59.1 % (47.0-73.0); PLATELET COUNT AUTOMATED 409 10*3/uL (130-400); RED BLOOD COUNT 4.16 10*6/uL (4.10-5.10); WHITE BLOOD COUNT 7.4 10*3/uL (4.8-10.8)
[2020-02-11 13:52] LABS: ACT PARTIAL THROMBO TIME 25.3 SECONDS (20.0-32.1); INTERNATIONAL NORM RATIO 0.9 (2.0-3.5)
[2020-02-11 13:53] LABS: ALBUMIN 3.2 gm/dl (3.1-4.5); BUN 10 mg/dl (7-24); CHLORIDE 108 mmol/L (98-107); CREATININE 0.64 mg/dL (0.55-1.02); POTASSIUM 4.2 mmol/L (3.5-5.1); SGOT/AST 6 IU/L (3-35); SGPT/ALT 19 U/L (12-78); SODIUM 141 mmol/L (136-145)
[2020-02-11 13:54] LABS: ALKALINE PHOSPHATASE 65 U/L (45-117)
[2020-02-11 14:21] LABS: BILIRUBIN NEGATIVE (NEGATIVE); BLOOD NEGATIVE (NEGATIVE); CLARITY CLOUDY (CLEAR); COLOR YELLOW (YELLOW); GLUCOSE NEGATIVE (NEGATIVE); KETONE NEGATIVE (NEGATIVE); SPECIFIC GRAVITY 1.015 (1.005-1.030)
[2020-02-11 14:22] LABS: BACTERIA 4+; EPITHELIAL CELLS 41-50; LEUKO ESTERASE 2+ (NEGATIVE); NITRITE NEGATIVE (NEGATIVE); UROBILINOGEN 0.2 E.U./dl (0.2-1.0); WBC 41-50 wbc/hpf (0-5)
== END | disposition home or self-care (01) ==
LOC: LAB 12:30
PROVIDERS: Nurse Practitioner Family
DX: N28.9 Disorder of kidney and ureter, unspecified (principal); Z01.818 Encounter for other preprocedural examination; M41.84 Other forms of scoliosis, thoracic region

== ENCOUNTER 2020-08-17 19:24 | Emergency (ER) | payer OTHER ==
[2020-08-17 20:11] LABS: HEMATOCRIT 40.6 % (37.0-47.0); MEAN CELL VOLUME 87.9 fl (81.0-99.0); MEAN CORPUSCULAR HGB 28.4 pg (27.0-31.0); MEAN CORPUSCULAR HGB CONC 32.3 g/dl (33.0-37.0); MEAN PLATELET VOLUME 11.1 fl (9.6-12.3); PLATELET COUNT AUTOMATED 284 10*3/uL (130-400); RED BLOOD COUNT 4.62 10*6/uL (4.10-5.10); RED CELL DISTRI WIDTH 13.3 % (0-14.5); WHITE BLOOD COUNT 19.8 10*3/uL (4.8-10.8)
[2020-08-17 20:14] LABS: BILIRUBIN Negative (Negative); BLOOD Negative (Negative); CLARITY Turbid (Clear); COLOR Dark Yellow (Yellow); GLUCOSE Negative (Negative); KETONE Trace (Negative); LEUKO ESTERASE 2+ (Negative); NITRITE Positive (Negative); SPECIFIC GRAVITY 1.025 (1.001-1.030)
[2020-08-17 20:34] LABS: TOTAL CELLS COUNTED 100 #CELLS
[2020-08-17 20:35] LABS: BURR CELLS FEW; PLATELET SUFFICIENCY NORMAL (NORMAL)
[2020-08-17 20:37] LABS: BACTERIA 2+; EPITHELIAL CELLS 41-50; WBC TNTC wbc/hpf (0-5)
[2020-08-17 20:47] LABS: ALBUMIN 2.8 gm/dl (3.1-4.5); ALKALINE PHOSPHATASE 70 U/L (45-117); BUN 11 mg/dl (7-24); CHLORIDE 105 mmol/L (98-107); CREATININE 0.81 mg/dL (0.55-1.02); POTASSIUM 3.3 mmol/L (3.5-5.1); SGOT/AST 15 IU/L (3-35); SGPT/ALT 37 U/L (12-78); SODIUM 136 mmol/L (136-145); TOTAL PROTEIN 5.9 gm/dL (6.4-8.2)
[2020-08-17 20:58] VITALS: BP 109/66
[2020-08-18] MEDS ORDERED: LEVOFLOXACIN750 M2 PO (00:11)
== END 2020-08-18 02:11 | disposition left against medical advice (07) ==
LOC: ED 19:24
PROVIDERS: Nurse Practitioner
DX: A41.9 Sepsis, unspecified organism (principal); K59.00 Constipation, unspecified; N39.0 Urinary tract infection, site not specified; Z88.8 Allergy status to other drugs, medicaments and biological substances; Z79.899 Other long term (current) drug therapy

== ENCOUNTER 2020-10-21 17:51 | Emergency (ER) | payer OTHER ==
[~2020-10-21] VITALS: Wt 64.4 kg
[~2020-10-21 17:51] MED LIST changes: +LEVOFLOXACIN750 M2 PO
[2020-10-21 18:13] VITALS: BP 127/79
[2020-10-21 18:15] LABS: BILIRUBIN Negative (Negative); BLOOD Trace-Lysed (Negative); CLARITY Turbid (Clear); COLOR Yellow (Yellow); GLUCOSE Negative (Negative); KETONE Negative (Negative); LEUKO ESTERASE 3+ (Negative); NITRITE Negative (Negative)
[2020-10-21 18:42] LABS: BACTERIA 1+; WBC TNTC wbc/hpf (0-5)
[2020-10-21 18:51] LABS: HEMATOCRIT 41.6 % (37.0-47.0); MEAN CELL VOLUME 86.7 fl (81.0-99.0); MEAN CORPUSCULAR HGB CONC 33.4 g/dl (33.0-37.0); PLATELET COUNT AUTOMATED 253 10*3/uL (130-400); RED CELL DISTRI WIDTH 13.4 % (0-14.5)
[2020-10-21 19:06] LABS: ALBUMIN 3.4 gm/dl (3.1-4.5); ALKALINE PHOSPHATASE 95 U/L (45-117); BUN 7 mg/dl (7-24); CHLORIDE 104 mmol/L (98-107); CREATININE 0.82 mg/dL (0.55-1.02); LIPASE 51 U/L (73-393); POTASSIUM 3.9 mmol/L (3.5-5.1); SGOT/AST 29 IU/L (3-35); SGPT/ALT 40 U/L (12-78); SODIUM 136 mmol/L (136-145); TOTAL PROTEIN 7.7 gm/dL (6.4-8.2)
[2020-10-21 19:08] LABS: PLATELET SUFFICIENCY NORMAL (NORMAL); TOTAL CELLS COUNTED 100 #CELLS
[2020-10-21] MEDS ORDERED: SEPTDS PO ×2 (19:34)
[2020-10-21] MEDS ORDERED: PYRIDIUM200 M1 PO ×2 (19:34)
== END 2020-10-21 19:50 | disposition left against medical advice (07) ==
LOC: ED 17:51
PROVIDERS: Emergency Medicine; Physician Assistant
DX: A41.9 Sepsis, unspecified organism (principal); N39.0 Urinary tract infection, site not specified; Z88.8 Allergy status to other drugs, medicaments and biological substances; Z79.2 Long term (current) use of antibiotics; Z98.890 Other specified postprocedural states; Z96.22 Myringotomy tube(s) status; Z53.29 Procedure and treatment not carried out because of patient's decision for other reasons

== ENCOUNTER 2020-10-25 00:25 | Emergency (ER) | payer OTHER ==
[~2020-10-25] VITALS: Ht 177.8 cm; Wt 64.4 kg
[~2020-10-25 00:25] MED LIST changes: +PYRIDIUM200 M1 PO
[2020-10-25 00:39] VITALS: BP 154/89
[2020-10-25 01:04] LABS: BASO % 0.7 % (0.0-1.0); EOS # 0.1 10*3/uL (0.0-0.4); HEMATOCRIT 42.1 % (37.0-47.0); LYMPH % 33.1 % (27.0-41.0); MEAN CORPUSCULAR HGB 29.5 pg (27.0-31.0); MEAN CORPUSCULAR HGB CONC 32.8 g/dl (33.0-37.0); MEAN PLATELET VOLUME 9.6 fl (9.6-12.3); MONO # 0.8 10*3/uL (0.1-1.0); MONO % 13.1 % (3.0-9.0); NEUT # 3.1 10*3/uL (2.3-7.9); NEUT % 50.6 % (47.0-73.0); PLATELET COUNT AUTOMATED 300 10*3/uL (130-400); RED BLOOD COUNT 4.68 10*6/uL (4.10-5.10); WHITE BLOOD COUNT 6.1 10*3/uL (4.8-10.8)
[2020-10-25 01:32] LABS: ALBUMIN 3.7 gm/dl (3.1-4.5); ALKALINE PHOSPHATASE 91 U/L (45-117); BUN 10 mg/dl (7-24); CHLORIDE 104 mmol/L (98-107); CREATININE 0.76 mg/dL (0.55-1.02); POTASSIUM 3.7 mmol/L (3.5-5.1); SGOT/AST 47 IU/L (3-35); SGPT/ALT 55 U/L (12-78); SODIUM 138 mmol/L (136-145); TOTAL PROTEIN 8.2 gm/dL (6.4-8.2)
[2020-10-25 01:34] LABS: BILIRUBIN Negative (Negative); BLOOD Negative (Negative); CLARITY Clear (Clear); COLOR Yellow (Yellow); GLUCOSE Negative (Negative); KETONE Negative (Negative); LEUKO ESTERASE Negative (Negative); NITRITE Negative (Negative)
[2020-10-25 01:57] LABS: BACTERIA TRACE; RBC 0-2 rbc/hpf (0-2)
== END 2020-10-25 02:31 | disposition home or self-care (01) ==
LOC: ED 00:25
PROVIDERS: Emergency Medicine
DX: N39.0 Urinary tract infection, site not specified (principal); F90.9 Attention-deficit hyperactivity disorder, unspecified type; F17.200 Nicotine dependence, unspecified, uncomplicated; Z91.048 Other nonmedicinal substance allergy status; Z79.2 Long term (current) use of antibiotics; Z79.899 Other long term (current) drug therapy; Z98.890 Other specified postprocedural states; Z96.22 Myringotomy tube(s) status; Z87.442 Personal history of urinary calculi

== ENCOUNTER 2020-12-04 12:30 | Emergency (ER) | payer OTHER ==
[~2020-12-04] VITALS: Ht 177.8 cm; Wt 64.9 kg
[2020-12-04 12:40] VITALS: BP 130/91
[2020-12-04] MEDS ORDERED: TOBREX OPHTH O3.5 GM T (13:26)
== END 2020-12-04 13:42 | disposition home or self-care (01) ==
LOC: ED 12:30
DX: H10.9 Unspecified conjunctivitis (principal); F17.200 Nicotine dependence, unspecified, uncomplicated; Z88.8 Allergy status to other drugs, medicaments and biological substances; Z79.899 Other long term (current) drug therapy; Z98.890 Other specified postprocedural states

== ENCOUNTER 2020-12-27 15:01 | Inpatient (IN) | payer OTHER ==
[~2020-12-27] VITALS: Ht 177.8 cm; Wt 64.4 kg
[~2020-12-27 15:01] MED LIST changes: +TOBREX OPHTH O3.5 GM T
[2020-12-27 15:17] VITALS: BP 102/60
[2020-12-27 15:48] LABS: BASO % 0.2 % (0.0-1.0); EOS # 0.1 10*3/uL (0.0-0.4); EOS % 0.3 % (1.0-4.0); HEMATOCRIT 47.6 % (37.0-47.0); LYMPH # 1.2 10*3/uL (1.3-4.4); LYMPH % 7.8 % (27.0-41.0); MEAN CORPUSCULAR HGB 29.3 pg (27.0-31.0); MEAN CORPUSCULAR HGB CONC 32.6 g/dl (33.0-37.0); MEAN PLATELET VOLUME 10.6 fl (9.6-12.3); MONO # 1.5 10*3/uL (0.1-1.0); MONO % 9.9 % (3.0-9.0); NEUT # 12.3 10*3/uL (2.3-7.9); NEUT % 81.3 % (47.0-73.0); PLATELET COUNT AUTOMATED 255 10*3/uL (130-400); RED BLOOD COUNT 5.29 10*6/uL (4.10-5.10); RED CELL DISTRI WIDTH 12.2 % (0-14.5); WHITE BLOOD COUNT 15.1 10*3/uL (4.8-10.8)
[2020-12-27 16:00] LABS: ACT PARTIAL THROMBO TIME 29.3 SECONDS (20.0-32.1)
[2020-12-27 16:08] LABS: ALBUMIN 3.4 gm/dl (3.1-4.5); ALKALINE PHOSPHATASE 92 U/L (45-117); BUN 8 mg/dl (7-24); CHLORIDE 105 mmol/L (98-107); CREATININE 0.86 mg/dL (0.55-1.02); LIPASE 49 U/L (73-393); POTASSIUM 3.3 mmol/L (3.5-5.1); SGOT/AST 9 IU/L (3-35); SGPT/ALT 31 U/L (12-78); SODIUM 137 mmol/L (136-145)
[2020-12-27 16:20] LABS: BETA-HCG, QUANT < 1.0 mIU/mL (1-3); TROPONIN I < 0.015 ng/ml (<0.045)
[2020-12-27 17:11] LABS: BILIRUBIN Negative (Negative); BLOOD Trace-Intact (Negative); CLARITY Cloudy (Clear); COLOR Yellow (Yellow); GLUCOSE Negative (Negative); KETONE Negative (Negative); LEUKO ESTERASE 2+ (Negative); NITRITE Negative (Negative); PH 5.5 (4.5-8.0)
[2020-12-27 17:15] VITALS: BP 112/68
[2020-12-27 17:24] LABS: BACTERIA 2+; EPITHELIAL CELLS 31-40; WBC 51-100 wbc/hpf (0-5)
[2020-12-27 19:30] VITALS: BP 114/70
[2020-12-28 01:49] VITALS: BP 108/78
[2020-12-28 06:07] VITALS: BP 126/76
[2020-12-28 06:11] LABS: ALBUMIN 2.4 gm/dl (3.1-4.5); ALKALINE PHOSPHATASE 64 U/L (45-117); BUN 6 mg/dl (7-24); CHLORIDE 110 mmol/L (98-107); CREATININE 0.58 mg/dL (0.55-1.02); POTASSIUM 3.6 mmol/L (3.5-5.1); SGOT/AST 8 IU/L (3-35); SGPT/ALT 21 U/L (12-78); SODIUM 138 mmol/L (136-145); TOTAL PROTEIN 5.6 gm/dL (6.4-8.2)
[2020-12-28 06:12] LABS: BASO % 0.2 % (0.0-1.0); EOS # 0.1 10*3/uL (0.0-0.4); EOS % 0.7 % (1.0-4.0); HEMATOCRIT 37.6 % (37.0-47.0); LYMPH # 1.4 10*3/uL (1.3-4.4); LYMPH % 11.6 % (27.0-41.0); MEAN CORPUSCULAR HGB 29.4 pg (27.0-31.0); MEAN CORPUSCULAR HGB CONC 32.7 g/dl (33.0-37.0); MEAN PLATELET VOLUME 11.8 fl (9.6-12.3); MONO # 1.3 10*3/uL (0.1-1.0); MONO % 10.8 % (3.0-9.0); NEUT # 9.3 10*3/uL (2.3-7.9); NEUT % 76.2 % (47.0-73.0); PLATELET COUNT AUTOMATED 215 10*3/uL (130-400); RED BLOOD COUNT 4.18 10*6/uL (4.10-5.10); RED CELL DISTRI WIDTH 12.2 % (0-14.5); WHITE BLOOD COUNT 12.2 10*3/uL (4.8-10.8)
[2020-12-28 06:17] LABS: FREE T4 0.85 ng/dl (0.76-1.46); THYROID STIM HORMONE (HS) 0.435 uIU/ml (0.358-4.75)
== END 2020-12-28 13:31 | disposition left against medical advice (07) | DRG 720 ==
LOC: ED 15:01 → EDHOLD 17:55
PROVIDERS: Emergency Medicine; Family Medicine; ADMIT Internal Medicine; ATTEND Internal Medicine
DX: A41.9 Sepsis, unspecified organism (principal); N39.0 Urinary tract infection, site not specified; N12 Tubulo-interstitial nephritis, not specified as acute or chronic; E87.6 Hypokalemia; F10.239 Alcohol dependence with withdrawal, unspecified; Z53.29 Procedure and treatment not carried out because of patient's decision for other reasons; Z88.8 Allergy status to other drugs, medicaments and biological substances; Z98.891 History of uterine scar from previous surgery; Z82.49 Family history of ischemic heart disease and other diseases of the circulatory system

== ENCOUNTER 2021-01-17 02:58 | Emergency (ER) | payer OTHER ==
[2021-01-17 03:34] VITALS: BP 117/72
== END 2021-01-17 06:03 | disposition home or self-care (01) ==
LOC: ED 02:58
DX: S62.617A Displaced fracture of proximal phalanx of left little finger, initial encounter for closed fracture (principal); F17.200 Nicotine dependence, unspecified, uncomplicated; Z88.8 Allergy status to other drugs, medicaments and biological substances; Z98.890 Other specified postprocedural states; W22.01XA Walked into wall, initial encounter; Y93.89 Activity, other specified; Y92.89 Other specified places as the place of occurrence of the external cause; Y99.8 Other external cause status

== ENCOUNTER 2021-09-29 21:11 | Emergency (ER) | payer OTHER ==
[~2021-09-29] VITALS: Ht 177.8 cm; Wt 64.0 kg
[2021-09-29 21:58] LABS: BILIRUBIN Negative (Negative); BLOOD Trace-Intact (Negative); CLARITY Turbid (Clear); COLOR Yellow (Yellow); GLUCOSE Negative (Negative); KETONE 1+ (Negative); LEUKO ESTERASE 1+ (Negative); NITRITE Negative (Negative); SPECIFIC GRAVITY >= 1.030 (1.001-1.030)
[2021-09-29 22:04] LABS: URINE AMPHETAMINES > 1000 (1000ng/ml); URINE BARBITURATES < 200 (200ng/ml); URINE BENZODIAZEPINES < 200 (200ng/ml); URINE CANNABINOIDS (THC) > 50 (50ng/ml); URINE COCAINE > 300 (300ng/ml); URINE METHADONE < 300 (300ng/ml); URINE OPIATES < 300 (300ng/ml)
[2021-09-29 22:06] LABS: BASO % 0.4 % (0.0-1.0); EOS # 0.1 10*3/uL (0.0-0.4); EOS % 0.8 % (1.0-4.0); HEMATOCRIT 41.1 % (37.0-47.0); LYMPH # 3.1 10*3/uL (1.3-4.4); LYMPH % 28.6 % (27.0-41.0); MEAN CELL VOLUME 86.9 fl (81.0-99.0); MEAN CORPUSCULAR HGB 30.2 pg (27.0-31.0); MEAN CORPUSCULAR HGB CONC 34.8 g/dl (33.0-37.0); MEAN PLATELET VOLUME 10.8 fl (9.6-12.3); MONO # 1.1 10*3/uL (0.1-1.0); MONO % 10.3 % (3.0-9.0); NEUT # 6.4 10*3/uL (2.3-7.9); NEUT % 59.7 % (47.0-73.0); PLATELET COUNT AUTOMATED 298 10*3/uL (130-400); RED BLOOD COUNT 4.73 10*6/uL (4.10-5.10); RED CELL DISTRI WIDTH 11.8 % (0-14.5); WHITE BLOOD COUNT 10.7 10*3/uL (4.8-10.8)
[2021-09-29 22:06] LABS: URINE PHENCYCLIDINE < 25 (25ng/ml)
[2021-09-29 22:23] LABS: ALBUMIN 4.4 gm/dl (3.1-4.5); ALKALINE PHOSPHATASE 55 U/L (45-117); BUN 17 mg/dl (7-24); CHLORIDE 107 mmol/L (98-107); CPK 221 U/L (26-192); CREATININE 1.02 mg/dL (0.55-1.02); POTASSIUM 3.4 mmol/L (3.5-5.1); SGPT/ALT 20 U/L (12-78); SODIUM 138 mmol/L (136-145)
[2021-09-29 22:24] LABS: ACETAMINOPHEN (TYLENOL) < 5.0 ug/ml (10-30)
[2021-09-29 22:26] LABS: SGOT/AST 17 IU/L (3-35)
[2021-09-29 22:30] LABS: ETHYL ALCOHOL < 3.0 mg/dl (<3)
[2021-09-29 22:35] LABS: BACTERIA 1+; EPITHELIAL CELLS TNTC; WBC 21-30 wbc/hpf (0-5)
[2021-09-30 05:37] VITALS: BP 130/82
== END 2021-09-30 10:05 | disposition home or self-care (01) ==
LOC: ED 21:11
PROVIDERS: Emergency Medicine
DX: R44.0 Auditory hallucinations (principal); F15.10 Other stimulant abuse, uncomplicated; F12.10 Cannabis abuse, uncomplicated; F14.10 Cocaine abuse, uncomplicated; Z91.018 Allergy to other foods

== ENCOUNTER 2021-10-08 00:28 | Emergency (ER) | payer OTHER ==
[~2021-10-08] VITALS: Wt 63.5 kg
[2021-10-08 00:42] VITALS: BP 138/98
[2021-10-08 01:02] LABS: BILIRUBIN Negative (Negative); BLOOD Negative (Negative); CLARITY Cloudy (Clear); COLOR Yellow (Yellow); GLUCOSE Negative (Negative); KETONE Negative (Negative); LEUKO ESTERASE 1+ (Negative); NITRITE Negative (Negative); UROBILINOGEN 0.2 E.U./dl (0.0-1.0)
[2021-10-08 01:20] LABS: EPITHELIAL CELLS 31-40
[2021-10-08 01:21] LABS: BACTERIA 2+
[2021-10-08] MEDS ORDERED: CIPRO500 MG PO (01:40)
== END 2021-10-08 01:49 | disposition home or self-care (01) ==
LOC: ED 00:28
PROVIDERS: Internal Medicine
DX: N39.0 Urinary tract infection, site not specified (principal); F17.200 Nicotine dependence, unspecified, uncomplicated; Z98.890 Other specified postprocedural states

== ENCOUNTER → 2022-01-04 | Outpatient (CLI) | payer OTHER ==
[2022-01-04 13:39] LABS: CHOLESTEROL 127 mg/dL (<200); GAMMA GLUTAMYL TRANSPEPTIDASE 13 U/L (5-55); LDL CHOLESTEROL 66 mg/dL (9-159); TRIGLYCERIDES 46 mg/dl (<150)
== END | disposition home or self-care (01) ==
LOC: LAB 12:25
PROVIDERS: ATTEND Dermatology
DX: L70.0 Acne vulgaris (principal); Z79.899 Other long term (current) drug therapy; M54.50 Low back pain, unspecified

== ENCOUNTER 2022-02-22 08:52 | Emergency (ER) | payer OTHER ==
[~2022-02-22] VITALS: Wt 70.3 kg
[2022-02-22] MEDS ORDERED: MYORISAN PO (09:04)
[2022-02-22 09:46] LABS: HEMATOCRIT 42.6 % (37.0-47.0); MEAN CELL VOLUME 87.8 fl (81.0-99.0); MEAN CORPUSCULAR HGB 29.1 pg (27.0-31.0); MEAN CORPUSCULAR HGB CONC 33.1 g/dl (33.0-37.0); MEAN PLATELET VOLUME 10.8 fl (9.6-12.3); PLATELET COUNT AUTOMATED 269 10*3/uL (130-400); RED BLOOD COUNT 4.85 10*6/uL (4.10-5.10); RED CELL DISTRI WIDTH 11.7 % (0-14.5); WHITE BLOOD COUNT 13.1 10*3/uL (4.8-10.8)
[2022-02-22 09:47] LABS: MANUAL DIFF REFLEX YES
[2022-02-22 09:50] LABS: BILIRUBIN Negative (Negative); BLOOD Negative (Negative); CLARITY Cloudy (Clear); COLOR Yellow (Yellow); GLUCOSE Negative (Negative); KETONE Negative (Negative); LEUKO ESTERASE 2+ (Negative); NITRITE Negative (Negative); PH 5.5 (4.5-8.0); SPECIFIC GRAVITY 1.015 (1.001-1.030)
[2022-02-22 10:01] LABS: ALKALINE PHOSPHATASE 60 U/L (45-117); BUN 9 mg/dl (7-24); CHLORIDE 107 mmol/L (98-107); CREATININE 0.77 mg/dL (0.55-1.02); POTASSIUM 3.9 mmol/L (3.5-5.1); SGOT/AST 6 IU/L (3-35); SGPT/ALT 14 U/L (12-78); SODIUM 138 mmol/L (136-145); TOTAL PROTEIN 7.4 gm/dL (6.4-8.2)
[2022-02-22 10:01] LABS: BACTERIA 2+; EPITHELIAL CELLS TNTC; WBC TNTC wbc/hpf (0-5)
[2022-02-22 10:07] LABS: BASOPHILS 1 % (0-1); PLATELET SUFFICIENCY NORMAL (NORMAL); TOTAL CELLS COUNTED 100 #CELLS
[2022-02-22 12:09] VITALS: BP 116/67
[2022-02-22] MEDS ORDERED: CEPHALEXIN500 M1 PO (17:08)
[2022-02-22] MEDS ORDERED: PYRIDIUM200 M1 PO (17:08)
== END 2022-02-22 17:20 | disposition home or self-care (01) ==
LOC: ED 08:52
PROVIDERS: Emergency Medicine
DX: N39.0 Urinary tract infection, site not specified (principal); Z79.899 Other long term (current) drug therapy; F17.200 Nicotine dependence, unspecified, uncomplicated

== ENCOUNTER → 2022-07-12 | Outpatient (CLI) | payer OTHER ==
[~2022-07-12] MED LIST changes: +CEPHALEXIN500 M1 PO; +MYORISAN PO
[2022-07-12 11:01] LABS: CHOLESTEROL 128 mg/dL (<200); GAMMA GLUTAMYL TRANSPEPTIDASE 19 U/L (5-55); TRIGLYCERIDES 47 mg/dl (<150)
[2022-07-12 11:04] LABS: LDL CHOLESTEROL 69 mg/dL (9-159)
== END | disposition home or self-care (01) ==
LOC: LAB 09:48
PROVIDERS: ATTEND Dermatology
DX: L70.0 Acne vulgaris (principal); Z79.899 Other long term (current) drug therapy

== ENCOUNTER 2023-02-12 18:36 | Emergency (ER) | payer OTHER ==
[~2023-02-12] VITALS: Ht 177.8 cm; Wt 66.2 kg
[~2023-02-12 18:36] MED LIST changes: +ABSORICA PO; +ZITHROMAX250 MG PO
[2023-02-12 18:50] VITALS: BP 131/97
== END 2023-02-12 20:11 | disposition home or self-care (01) ==
LOC: ED 18:36
DX: N89.9 Noninflammatory disorder of vagina, unspecified (principal); F90.9 Attention-deficit hyperactivity disorder, unspecified type; Z87.442 Personal history of urinary calculi; Z88.8 Allergy status to other drugs, medicaments and biological substances; Z90.89 Acquired absence of other organs; Z98.890 Other specified postprocedural states; F12.10 Cannabis abuse, uncomplicated; F14.10 Cocaine abuse, uncomplicated; F17.200 Nicotine dependence, unspecified, uncomplicated

== ENCOUNTER 2023-07-20 12:05 | Emergency (ER) | payer OTHER ==
[~2023-07-20] VITALS: Ht 177.8 cm; Wt 71.7 kg
[2023-07-20 12:17] VITALS: BP 151/112
[2023-07-20 12:56] LABS: HEMATOCRIT 45.9 % (37.0-47.0); MEAN CELL VOLUME 91.3 fl (81.0-99.0); MEAN CORPUSCULAR HGB CONC 35.1 g/dl (33.0-37.0); MEAN PLATELET VOLUME 10.8 fl (9.6-12.3); PLATELET COUNT AUTOMATED 257 10*3/uL (130-400); RED BLOOD COUNT 5.03 10*6/uL (4.10-5.10); RED CELL DISTRI WIDTH 11.7 % (0-14.5); WHITE BLOOD COUNT 18.9 10*3/uL (4.8-10.8)
[2023-07-20 12:57] LABS: MANUAL DIFF REFLEX YES
[2023-07-20 13:16] LABS: ATYPICAL LYMPHS 1 % (0-0); BASOPHILS 1 % (0-1); PLATELET SUFFICIENCY NORMAL (NORMAL); TOTAL CELLS COUNTED 100 #CELLS
[2023-07-20 13:18] LABS: ALKALINE PHOSPHATASE 84 U/L (46-116); CHLORIDE 106 mmol/L (98-107); SGPT/ALT 8 U/L (5-49); TOTAL PROTEIN 7.3 gm/dL (6.0-8.0)
[2023-07-20 13:23] LABS: BUN < 5 mg/dl (9-23)
[2023-07-20] MEDS ORDERED: PENICILLIN VK500 MG PO (14:57)
== END 2023-07-20 15:11 | disposition home or self-care (01) ==
LOC: ED 12:05
PROVIDERS: Nurse Practitioner Family
DX: J02.0 Streptococcal pharyngitis (principal); R00.0 Tachycardia, unspecified; R50.9 Fever, unspecified; Z88.8 Allergy status to other drugs, medicaments and biological substances; Z79.2 Long term (current) use of antibiotics; Z79.899 Other long term (current) drug therapy; F17.210 Nicotine dependence, cigarettes, uncomplicated; Z87.42 Personal history of other diseases of the female genital tract; Z98.890 Other specified postprocedural states; Z96.22 Myringotomy tube(s) status

== ENCOUNTER 2023-09-14 20:16 | Emergency (ER) | payer OTHER ==
[~2023-09-14] VITALS: Ht 177.8 cm; Wt 78.5 kg
[2023-09-14 20:27] VITALS: BP 141/101
== END 2023-09-14 21:28 | disposition home or self-care (01) ==
LOC: ED 20:16
DX: H61.21 Impacted cerumen, right ear (principal); F90.9 Attention-deficit hyperactivity disorder, unspecified type; Z87.442 Personal history of urinary calculi; Z88.8 Allergy status to other drugs, medicaments and biological substances; Z90.49 Acquired absence of other specified parts of digestive tract; Z90.89 Acquired absence of other organs; Z98.890 Other specified postprocedural states; F12.10 Cannabis abuse, uncomplicated; F14.10 Cocaine abuse, uncomplicated

== ENCOUNTER 2023-11-21 11:35 | Emergency (ER) | payer OTHER ==
[~2023-11-21] VITALS: Ht 177.8 cm; Wt 79.4 kg
[2023-11-21 11:42] VITALS: BP 139/92
[2023-11-21] MEDS ORDERED: SODIUM CHLORIDE 0.9% 1,000 ML IV ONE (11:55)
[2023-11-21] MEDS ORDERED: Ketorolac Tromethamine 30 MG/ML VIAL IV ONE (11:55)
[2023-11-21 12:14] LABS: BASO % 0.3 % (0.0-1.0); EOS # 0.1 10*3/uL (0.0-0.4); EOS % 1.2 % (1.0-4.0); HEMATOCRIT 45.9 % (37.0-47.0); LYMPH # 0.6 10*3/uL (1.3-4.4); LYMPH % 6.2 % (27.0-41.0); MEAN CORPUSCULAR HGB 31.3 pg (27.0-31.0); MEAN PLATELET VOLUME 9.9 fl (9.6-12.3); MONO # 0.7 10*3/uL (0.1-1.0); MONO % 7.6 % (3.0-9.0); NEUT # 8.2 10*3/uL (2.3-7.9); NEUT % 84.4 % (47.0-73.0); PLATELET COUNT AUTOMATED 283 10*3/uL (130-400); RED BLOOD COUNT 4.99 10*6/uL (4.10-5.10); RED CELL DISTRI WIDTH 12.1 % (0-14.5); WHITE BLOOD COUNT 9.7 10*3/uL (4.8-10.8)
[2023-11-21 12:38] LABS: ALKALINE PHOSPHATASE 90 U/L (46-116); BUN 7 mg/dl (9-23); CHLORIDE 104 mmol/L (98-107); POTASSIUM 3.4 mmol/L (3.4-5.1); SGPT/ALT 20 U/L (5-49); TOTAL PROTEIN 7.7 gm/dL (6.0-8.0)
[2023-11-21 13:02] LABS: BILIRUBIN Negative (Negative); BLOOD Negative (Negative); CLARITY Cloudy (Clear); COLOR Yellow (Yellow); GLUCOSE Negative (Negative); KETONE Negative (Negative); LEUKO ESTERASE 2+ (Negative); NITRITE Negative (Negative); PH >= 9.0 (4.5-8.0)
[2023-11-21 13:08] LABS: EPITHELIAL CELLS TNTC
[2023-11-21 13:10] LABS: BACTERIA 4+
[2023-11-21] MEDS ORDERED: SEPTDS PO (13:28)
== END 2023-11-21 13:34 | disposition home or self-care (01) ==
LOC: ED 11:35
PROVIDERS: Physician Assistant Medical
DX: N39.0 Urinary tract infection, site not specified (principal); Z20.822 Contact with and (suspected) exposure to COVID-19; R07.89 Other chest pain; F90.9 Attention-deficit hyperactivity disorder, unspecified type; Z87.442 Personal history of urinary calculi; F12.10 Cannabis abuse, uncomplicated; F14.10 Cocaine abuse, uncomplicated; F17.210 Nicotine dependence, cigarettes, uncomplicated; Z91.018 Allergy to other foods; Z90.89 Acquired absence of other organs; Z98.890 Other specified postprocedural states

== ENCOUNTER 2024-04-05 13:46 | Emergency (ER) | payer OTHER ==
[~2024-04-05] VITALS: Ht 177.8 cm; Wt 87.1 kg
[2024-04-05 13:59] VITALS: BP 120/79
== END 2024-04-05 14:35 | disposition home or self-care (01) ==
LOC: ED 13:46
DX: Z00.01 Encounter for general adult medical examination with abnormal findings (principal); F90.9 Attention-deficit hyperactivity disorder, unspecified type; F12.10 Cannabis abuse, uncomplicated; F14.10 Cocaine abuse, uncomplicated; F17.200 Nicotine dependence, unspecified, uncomplicated; Z87.442 Personal history of urinary calculi; Z88.8 Allergy status to other drugs, medicaments and biological substances; Z90.89 Acquired absence of other organs; Z98.890 Other specified postprocedural states

== ENCOUNTER 2024-04-29 20:30 | Emergency (ER) | payer OTHER ==
[~2024-04-29] VITALS: Ht 177.8 cm; Wt 86.2 kg
[2024-04-29 20:39] VITALS: BP 145/100
[2024-04-29] MEDS ORDERED: NAPROSYN500 MG PO (22:21)
== END 2024-04-29 22:52 | disposition home or self-care (01) ==
LOC: ED 20:30
DX: S96.911A Strain of unspecified muscle and tendon at ankle and foot level, right foot, initial encounter (principal); F17.210 Nicotine dependence, cigarettes, uncomplicated; Z91.048 Other nonmedicinal substance allergy status; Z87.42 Personal history of other diseases of the female genital tract; Z98.890 Other specified postprocedural states; Z96.22 Myringotomy tube(s) status; X58.XXXA Exposure to other specified factors, initial encounter; Y93.89 Activity, other specified; Y92.89 Other specified places as the place of occurrence of the external cause; Y99.8 Other external cause status

== ENCOUNTER → 2024-05-02 | Outpatient (CLI) | payer OTHER ==
[2024-05-02 10:24] LABS: BASO % 0.5 % (0.0-1.0); EOS # 0.3 10*3/uL (0.0-0.4); EOS % 3.6 % (1.0-4.0); HEMATOCRIT 46.4 % (37.0-47.0); LYMPH % 26.3 % (27.0-41.0); MEAN CELL VOLUME 94.9 fl (81.0-99.0); MEAN CORPUSCULAR HGB 33.9 pg (27.0-31.0); MEAN CORPUSCULAR HGB CONC 35.8 g/dl (33.0-37.0); MEAN PLATELET VOLUME 10.9 fl (9.6-12.3); MONO # 0.9 10*3/uL (0.1-1.0); MONO % 12.4 % (3.0-9.0); NEUT # 4.3 10*3/uL (2.3-7.9); NEUT % 56.8 % (47.0-73.0); PLATELET COUNT AUTOMATED 296 10*3/uL (130-400); RED BLOOD COUNT 4.89 10*6/uL (4.10-5.10); WHITE BLOOD COUNT 7.5 10*3/uL (4.8-10.8)
[2024-05-02 10:40] LABS: BUN 8 mg/dl (9-23); CHLORIDE 106 mmol/L (98-107); POTASSIUM 3.9 mmol/L (3.4-5.1); URIC ACID 4.5 mg/dL (3.1-7.8)
== END | disposition home or self-care (01) ==
LOC: LAB 09:53
PROVIDERS: ATTEND Podiatrist Foot & Ankle Surgery
DX: M79.671 Pain in right foot (principal)

== ENCOUNTER → 2024-06-23 | Outpatient (CLI) | payer OTHER | END | disposition home or self-care (01) | LOC: RAD 14:00 | PROVIDERS: ATTEND Family Medicine | DX: Z13.820 Encounter for screening for osteoporosis (principal); S92.301A Fracture of unspecified metatarsal bone(s), right foot, initial encounter for closed fracture; M85.80 Other specified disorders of bone density and structure, unspecified site; M81.0 Age-related osteoporosis without current pathological fracture; X58.XXXA Exposure to other specified factors, initial encounter; Y93.89 Activity, other specified; Y92.89 Other specified places as the place of occurrence of the external cause; Y99.8 Other external cause status ==

== ENCOUNTER 2024-11-20 10:25 | Emergency (ER) | payer OTHER ==
[~2024-11-20] VITALS: Ht 180.3 cm; Wt 95.7 kg
[2024-11-20 11:06] LABS: BASO % 0.4 % (0.0-1.0); EOS # 0.1 10*3/uL (0.0-0.4); EOS % 1.3 % (1.0-4.0); HEMATOCRIT 42.7 % (37.0-47.0); MEAN CELL VOLUME 94.9 fl (81.0-99.0); MEAN CORPUSCULAR HGB 32.4 pg (27.0-31.0); MEAN CORPUSCULAR HGB CONC 34.2 g/dl (33.0-37.0); MEAN PLATELET VOLUME 10.5 fl (9.6-12.3); MONO # 1.3 10*3/uL (0.1-1.0); MONO % 12.7 % (3.0-9.0); NEUT # 6.6 10*3/uL (2.3-7.9); PLATELET COUNT AUTOMATED 299 10*3/uL (130-400); RED CELL DISTRI WIDTH 12.4 % (0-14.5)
[2024-11-20 11:26] LABS: BUN 7 mg/dl (9-23); CHLORIDE 105 mmol/L (98-107); POTASSIUM 3.2 mmol/L (3.4-5.1)
[2024-11-20 12:00] VITALS: BP 146/88
[2024-11-20] MEDS ORDERED: POTASSIUM CHLORIDE 20 MEQ TAB PO ONE (12:05)
[2024-11-20] MEDS ORDERED: Acetaminophen/Oxycodone 5 MG/325 MG TABLET PO ONE (12:05)
[2024-11-20] MEDS ORDERED: MELOXICAM15 MG PO (12:06)
== END 2024-11-20 12:13 | disposition home or self-care (01) ==
LOC: ED 10:25
PROVIDERS: Internal Medicine
DX: M94.0 Chondrocostal junction syndrome [Tietze] (principal); F17.200 Nicotine dependence, unspecified, uncomplicated; Z88.8 Allergy status to other drugs, medicaments and biological substances; Z98.890 Other specified postprocedural states; Z96.22 Myringotomy tube(s) status

== ENCOUNTER 2024-12-10 14:45 | Emergency (ER) | payer OTHER ==
[~2024-12-10] VITALS: Wt 95.7 kg
[~2024-12-10 14:45] MED LIST changes: +MELOXICAM15 MG PO
[2024-12-10 14:59] VITALS: BP 150/84
[2024-12-10] MEDS ORDERED: Ketorolac Tromethamine 15 MG/ML VIAL IV ONE (15:05)
[2024-12-10] MEDS ORDERED: SODIUM CHLORIDE 0.9% 1,000 ML IV ONE (15:05)
[2024-12-10 15:13] LABS: BASO % 0.4 % (0.0-1.0); EOS # 0.1 10*3/uL (0.0-0.4); EOS % 1.1 % (1.0-4.0); HEMATOCRIT 47.7 % (37.0-47.0); MEAN CELL VOLUME 95.8 fl (81.0-99.0); MEAN CORPUSCULAR HGB 32.3 pg (27.0-31.0); MEAN CORPUSCULAR HGB CONC 33.8 g/dl (33.0-37.0); MEAN PLATELET VOLUME 10.5 fl (9.6-12.3); MONO % 9.6 % (3.0-9.0); NEUT # 7.3 10*3/uL (2.3-7.9); PLATELET COUNT AUTOMATED 289 10*3/uL (130-400); RED BLOOD COUNT 4.98 10*6/uL (4.10-5.10); RED CELL DISTRI WIDTH 12.5 % (0-14.5); WHITE BLOOD COUNT 10.5 10*3/uL (4.8-10.8)
[2024-12-10 15:25] LABS: URINE AMPHETAMINES Negative (1000ng/ml); URINE BARBITURATES Negative (200ng/ml); URINE BENZODIAZEPINES Negative (200ng/ml); URINE CANNABINOIDS (THC) Positive (50ng/ml); URINE COCAINE Positive (300ng/ml); URINE METHADONE Negative (300ng/ml); URINE OPIATES Negative (300ng/ml); URINE PHENCYCLIDINE Negative (25ng/ml)
[2024-12-10 15:37] LABS: BUN 8 mg/dl (9-23); CHLORIDE 105 mmol/L (98-107); POTASSIUM 3.3 mmol/L (3.4-5.1)
[2024-12-10] MEDS ORDERED: MELOXICAM15 MG PO (15:52)
== END 2024-12-10 15:53 | disposition home or self-care (01) ==
LOC: ED 14:45
PROVIDERS: Emergency Medicine
DX: R07.89 Other chest pain (principal); R09.1 Pleurisy; F14.10 Cocaine abuse, uncomplicated; F17.210 Nicotine dependence, cigarettes, uncomplicated; Z79.899 Other long term (current) drug therapy; Z98.890 Other specified postprocedural states

== ENCOUNTER 2025-03-15 13:33 | Emergency (ER) | payer OTHER ==
[~2025-03-15] VITALS: Ht 177.8 cm; Wt 95.3 kg
[2025-03-15 13:43] VITALS: BP 125/91
[2025-03-15] MEDS ORDERED: Acetaminophen/Hydrocodone 5 MG/325 MG TABLET PO ONE (14:05)
== END 2025-03-15 14:53 | disposition home or self-care (01) ==
LOC: ED 13:33
DX: R22.31 Localized swelling, mass and lump, right upper limb (principal); M79.671 Pain in right foot; Z88.8 Allergy status to other drugs, medicaments and biological substances; Z98.890 Other specified postprocedural states; Z87.891 Personal history of nicotine dependence

== ENCOUNTER → 2025-03-23 | Outpatient (CLI) | payer OTHER | END | disposition home or self-care (01) | LOC: ORTHO 00:49 | PROVIDERS: ATTEND Orthopaedic Surgery | DX: R22.41 Localized swelling, mass and lump, right lower limb (principal); M79.671 Pain in right foot ==

== ENCOUNTER → 2025-04-14 | Outpatient (CLI) | payer OTHER | END | disposition home or self-care (01) | LOC: MRI 04-10 15:00 | PROVIDERS: ATTEND Orthopaedic Surgery | DX: S92.324A Nondisplaced fracture of second metatarsal bone, right foot, initial encounter for closed fracture (principal); S92.331A Displaced fracture of third metatarsal bone, right foot, initial encounter for closed fracture; M79.671 Pain in right foot; X58.XXXA Exposure to other specified factors, initial encounter; Y93.89 Activity, other specified; Y92.89 Other specified places as the place of occurrence of the external cause; Y99.8 Other external cause status ==

== ENCOUNTER → 2025-09-01 | Outpatient (CLI) | payer OTHER | END | disposition home or self-care (01) | LOC: D 15:10 | PROVIDERS: ATTEND Family Medicine | DX: E66.9 Obesity, unspecified (principal) ==

== ENCOUNTER 2025-09-16 20:38 | Emergency (ER) | payer OTHER ==
[~2025-09-16] VITALS: Ht 177.8 cm; Wt 99.8 kg
[2025-09-16 21:06] LABS: BILIRUBIN Negative (Negative); BLOOD Trace-Intact (Negative); CLARITY Clear (Clear); COLOR Yellow (Yellow); KETONE Negative (Negative); LEUKO ESTERASE Negative (Negative); NITRITE Negative (Negative); PH 6.5 (4.5-8.0); SPECIFIC GRAVITY 1.010 (1.001-1.030); UROBILINOGEN 0.2 E.U./dl (0.0-1.0)
[2025-09-16 21:16] LABS: BACTERIA TRACE; EPITHELIAL CELLS 21-30; MUCOUS 1+; RBC 16-20 rbc/hpf (0-2); WBC 0-2 wbc/hpf (0-5)
[2025-09-16 23:04] VITALS: BP 124/72
== END 2025-09-16 23:08 | disposition home or self-care (01) ==
LOC: ED 20:38
PROVIDERS: Internal Medicine
DX: R10.30 Lower abdominal pain, unspecified (principal); F90.9 Attention-deficit hyperactivity disorder, unspecified type; R31.9 Hematuria, unspecified; Z98.890 Other specified postprocedural states; Z87.442 Personal history of urinary calculi